=== PATIENT | male | born 1995 | race Caucasian/White ===

== ENCOUNTER 2017-04-08 14:43 | Emergency (ER) | payer OTHER ==
[~2017-04-08] VITALS: Ht 175.3 cm; Wt 68.2 kg
[2017-04-08 14:52] VITALS: TEMP 36.8; Ht 175.3 cm; Wt 68.2 kg
[2017-04-08] MEDS ORDERED: SODIUM CHLORIDE 0.9% 1000ML 1,000 ML IV STA (15:23)
[2017-04-08 15:36] LABS: BASO % 0.4 %; BASO ABS # 0.02 K/uL (0-0.2); COMPLETE YES; EOS % 1.4 %; HEMATOCRIT 40.2 % (42-52); IG% 0.6 %; LYMPH % 35.3 %; LYMPH ABS # 1.82 K/uL (1.2-3.4); MEAN CELL VOLUME 85.7 fL (80-100); MEAN CORPUSCULAR HEMOGLOBIN 30.5 pg (25-34); MEAN CORPUSCULAR HGB CONC 35.6 g/dl (32-36); MEAN PLATELET VOLUME 9.3 fL (7.4-10.4); MONO % 18.1 %; NEUT % 44.2 %; PLATELET COUNT 185 K/uL (130-400); RED BLOOD COUNT 4.69 M/uL (4.7-6.1); WHITE BLOOD COUNT 5.15 K/uL (4.8-10.8)
--- NOTE | 2017-04-08 15:37 | EMERGENCY ROOM VISIT NOTE ---
History Report prepared by Vincent: Robert Mata Under the Supervision of: Dr. Fredy Jeronimo D.O. First contact with patient: 15:12 Chief Complaint: SYNCOPE (NEAR SYNCOPE) Stated Complaint: WEEK LONG FEVER,ON ABX, HEADACHES, FAINTING History of Present Illness The patient is a 22 year old male who presents to the Emergency Room with complaints of a syncopal episode that occurred last night. Last week, he began to experience a headache with abnormal upper respiratory symptoms. The patient was diagnosed with a URI at [facility] and was given Azithromycin. He states that his respiratory symptoms have improved, but his headache has been constant. Last night while he was going to the bathroom, he began to have tunnel vision and thought he was going to pass out. He went outside and sat down with his friend and lost consciousness, hitting his face on the ground. His friend woke him up shortly after. The patient's headache worsens when he moves his head. He is also having some neck stiffness and a "delay" in his vision. He denies any fevers or vomiting. He states that he is nauseated. He does not take any medications. Source of History: patient Onset: last night Position: other (Global) Symptom Intensity: 1 episode Quality: other (Syncope) Timing: resolved Associated Symptoms: + headache, + neck pain, + nausea, No fevers, No vomiting Review of Systems See HPI for pertinent positives & negatives. A total of 10 systems reviewed and were otherwise negative. Past Medical & Surgical Medical Problems: (1) No Known Active Medical Problems Family History Patient reports no known family medical history. Social History Smoking Status: Former Smoker Smokeless Tobacco Use: No Alcohol Use: occasionally Drug Use: none Marital Status: single Housing Status: lives with roommate Occupation Status: student Current/Historical Medications Scheduled Protein (Whey Protein), 1 DOSE PO DIRECTED Allergies Coded Allergies: Amoxicillin (Verified Allergy, Intermediate, RASH, 04/08/17) Physical Exam Vital Signs Date Time Temp Pulse Resp B/P (MAP) Pulse Ox O2 Delivery O2 Flow Rate FiO2 04/08/17 17:01 72 16 124/78 98 04/08/17 16:46 04/08/17 16:45 72 16 124/78 98 Room Air 04/08/17 15:31 73 16 134/65 72 141/80 98 139/77 10/29/17 15:29 139/77 04/08/17 15:25 Room Air 04/08/17 15:20 76 04/08/17 14:52 36.8 94 18 137/84 98 Room Air Physical Exam GENERAL: Patient is awake, alert, and in no acute distress. Patient is resting comfortably and showing no signs of anxiety EYES: The conjunctivae are clear. The pupils are round and reactive. EARS, NOSE, MOUTH AND THROAT: The nose is without any evidence of any deformity. Mucous membranes are moist tongue is midline NECK: The neck is nontender and supple. RESPIRATORY: Normal respiratory effort is noted there is no evidence of wheezing rhonchi or rales CARDIOVASCULAR: Regular rate and rhythm noted there no murmurs rubs or gallops normal S1 normal S2 GASTROINTESTINAL: The abdomen is soft. Bowel sounds are present in all quadrants. Abdomen is nontender MUSCULOSKELETAL/EXTREMITIES: There is no evidence of gross deformity full range of motion is noted in the hips and shoulders SKIN: There is no obvious evidence of any rash. There are no petechiae, pallor or cyanosis noted. NEUROLOGIC: Patient is awake alert and oriented x3 strength is symmetric patellar reflexes are 2+ bilaterally Medical Decision & Procedures ER Provider Diagnostic Interpretation: Radiology results as stated below per my review and radiologist interpretation: HEAD WITHOUT CONTRAST (CT) CT DOSE: 614.27 mGy.cm HISTORY: Mental status change. Weakness. EVALUATE ALTERED MENTAL STATUS/WEAKNESS TECHNIQUE: Multiaxial CT images of the head were performed without the use of intravenous contrast. A dose lowering technique was utilized adhering to the principles of ALARA. Comparison: None. Findings: The paranasal sinuses and mastoid air cells are clear. The calvarium and skull base are intact. The ventricles and sulci are within normal limits. There is no mass, hematoma, midline shift, or acute infarct. Impression: No acute intracranial abnormality. The above report was generated using voice recognition software. It may contain grammatical, syntax or spelling errors. Electronically signed by: Oj Kessler M.D. 04/08/2017 4:04 PM Dictated Date/Time: 04/08/2017 4:03 PM CHEST ONE VIEW PORTABLE CLINICAL HISTORY: EVALUATE ALTERED MENTAL STATUS/WEAKNESS dyspnea COMPARISON STUDY: No previous studies for comparison. FINDINGS: The bones soft tissues and hemidiaphragms are normal. The cardiomediastinal silhouette is normal. The lungs are clear. The pulmonary vasculature is normal. IMPRESSION: Negative chest. The above report was generated using voice recognition software. It may contain grammatical, syntax or spelling errors. Electronically signed by: Oj Kessler M.D. 04/08/2017 4:06 PM Dictated Date/Time: 04/08/2017 4:06 PM Laboratory Results 04/08/17 15:18 Red Blood Count 4.69, Mean Corpuscular Volume 85.7, Mean Corpuscular Hemoglobin 30.5, Mean Corpuscular Hemoglobin Concent 35.6, Mean Platelet Volume 9.3, Neutrophils (%) (Auto) 44.2, Lymphocytes (%) (Auto) 35.3, Monocytes (%) (Auto) 18.1, Eosinophils (%) (Auto) 1.4, Basophils (%) (Auto) 0.4, Neutrophils # (Auto ) 2.28, Lymphocytes # (Auto) 1.82, Monocytes # (Auto) 0.93, Eosinophils # (Auto ) 0.07, Basophils # (Auto) 0.02 04/08/17 15:18 Test 04/08/17 15:18 White Blood Count 5.15 K/uL (4.8-10.8) Red Blood Count 4.69 M/uL (4.7-6.1) Hemoglobin 14.3 g/dL (14.0-18.0) Hematocrit 40.2 % (42-52) Mean Corpuscular Volume 85.7 fL (80-100) Mean Corpuscular Hemoglobin 30.5 pg (25-34) Mean Corpuscular Hemoglobin Concent 35.6 g/dl (32-36) Platelet Count 185 K/uL (130-400) Mean Platelet Volume 9.3 fL (7.4-10.4) Neutrophils (%) (Auto) 44.2 % Lymphocytes (%) (Auto) 35.3 % Monocytes (%) (Auto) 18.1 % Eosinophils (%) (Auto) 1.4 % Basophils (%) (Auto) 0.4 % Neutrophils # (Auto) 2.28 K/uL (1.4-6.5) Lymphocytes # (Auto) 1.82 K/uL (1.2-3.4) Monocytes # (Auto) 0.93 K/uL (0.11-0.59) Eosinophils # (Auto) 0.07 K/uL (0-0.5) Basophils # (Auto) 0.02 K/uL (0-0.2) RDW Standard Deviation 40.0 fL (36.4-46.3) RDW Coefficient of Variation 12.8 % (11.5-14.5) Immature Granulocyte % (Auto) 0.6 % Immature Granulocyte # (Auto) 0.03 K/uL (0.00-0.02) Urine Color YELLOW Urine Appearance CLEAR (CLEAR) Urine pH 7.0 (4.5-7.5) Urine Specific [place] 1.026 (1.000-1.030) Urine Protein NEG (NEG) Urine Glucose (UA) NEG (NEG) Urine Ketones NEG (NEG) Urine Occult Blood NEG (NEG) Urine Nitrite NEG (NEG) Urine Bilirubin NEG (NEG) Urine Urobilinogen NEG (NEG) Urine Leukocyte Esterase NEG (NEG) Anion Gap 6.0 mmol/L (3-11) Est Creatinine Clear Calc Drug Dose 108.4 ml/min Estimated GFR () 118.4 Estimated GFR (Non- 102.2 BUN/Creatinine Ratio 13.4 (10-20) Calcium Level 9.0 mg/dl (8.5-10.1) Magnesium Level 2.0 mg/dl (1.8-2.4) Total Bilirubin 0.5 mg/dl (0.2-1) Direct Bilirubin 0.1 mg/dl (0-0.2) Aspartate Amino Transf (AST/SGOT) 22 U/L (15-37) Alanine Aminotransferase (ALT/SGPT) 35 U/L (12-78) Alkaline Phosphatase 86 U/L (45-117) Total Creatine Kinase 150 U/L (39-308) Creatine Kinase MB 0.6 ng/ml (0.5-3.6) Creatine Kinase MB Ratio 0.4 (0-3.0) Troponin I < 0.015 ng/ml (0-0.045) Total Protein 8.0 gm/dl (6.4-8.2) Albumin 4.1 gm/dl (3.4-5.0) Thyroid Stimulating Hormone (TSH) 1.390 uIu/ml (0.300-4.500) Laboratory results per my review. Medications Administered Medications (Trade) Dose Ordered Sig/Carlyn Route Start Time Stop Time Status Last Admin Dose Admin Sodium Chloride 1,000 ml @ 999 mls/hr Q1H1M STAT IV 04/08/17 15:23 04/08/17 16:23 DC 04/08/17 15:38 999 MLS/HR ECG Indication: syncope Rate (beats per minute): 71 Rhythm: normal sinus Findings: no ectopy, other (No acute ST segment abnormalities) Comparison ECG Date: no prior available ED Course 1512: The patient was evaluated in room A12. A complete history and physical examination were performed. 1523: Ordered NSS 1,000 ml @ 999 mls/hr IV 1649: I spoke to the patient about performing a lumbar puncture procedure. He declined. 1700: Upon reevaluation, the patient is resting. I discussed the results and treatment plan with him. He verbalized agreement of the treatment plan. He was discharged home. Medical Decision Differential diagnosis: Etiologies such as vasovagal event, infection, hypoglycemia, electrolyte abnormalities, cardiac sources, intracerebral event, toxicologic, neurologic, as well as others were entertained. Nursing notes reviewed. The patient is a 22-year-old male who presented to the emergency department after having a syncopal episode. The patient states that he's been feeling ill lately with low-grade fever as well as headache. The patient was started on antibiotic is not patient and finish the course. At this time the patient does not have any focal neurologic deficit. He does not have meningismus. I discussed the patient's laboratory and radiographic studies with him. He was treated with IV fluids in the emergency department. The patient was offered to have a lumbar puncture. I explained to him that this would also rule out meningitis as well as intracranial hemorrhage with subarachnoid bleeding being a possibility even though the CAT scan was negative. I discussed the pros and cons ordering this test. At this time the patient does not wish to have a lumbar puncture. I encouraged him to rest and avoid any strenuous activity. He was encouraged to continue using Motrin and Tylenol for pain. He was also encouraged to follow-up with [facility] for further studies such as echocardiogram Holter monitor and possibly further neuroimaging if symptoms do not improve. Otherwise she was encouraged to return to the emergency Department immediately if symptoms change worsen or the need arises. Medication Reconcilliation Current Medication List: was personally reviewed by me Blood Pressure Screening Patient's blood pressure: Normal blood pressure Blood pressure disposition: Did not require urgent referral Impression Primary Impression: Syncope Additional Impression: Headache Scribe Attestation The scribe's documentation has been prepared under my direction and personally reviewed by me in its entirety. I confirm that the note above accurately reflects all work, treatment, procedures, and medical decision making performed by me. Departure Information Dispostion Home / Self-Care Referrals [facility] Forms HOME CARE DOCUMENTATION FORM, IMPORTANT VISIT INFORMATION, School Instructions Patient Instructions [facility], Syncope, Syncope Causes Additional Instructions Continue all medications as prescribed. Continue using Motrin and Tylenol for headache. Rest and avoid any strenuous activity. Follow-up with [facility] within the next few days for reevaluation. You may require further studies such as echocardiogram and Holter monitor to further evaluate the cause of your passing out spell. He may also require further imaging of your brain to evaluate because your headache if it does not improve. Problem Qualifiers Primary Impression: Syncope Syncope type: unspecified Qualified Codes: R55 - Syncope and collapse Additional Impression: Headache Headache type: unspecified Headache chronicity pattern: acute headache Intractability: not intractable Qualified Codes: R51 - Headache
[2017-04-08] MEDS ORDERED: PROT1POW7 PO (15:49)
[2017-04-08 15:55] LABS: ALT/SGPT 35 U/L (12-78); BLOOD UREA NITROGEN 14 mg/dl (7-18); BUN/CREATININE RATIO 13.4 (10-20); CARBON DIOXIDE 28 mmol/L (21-32); CHLORIDE 102 mmol/L (98-107); CREATININE 1.04 mg/dl (0.60-1.40); GLUCOSE 84 mg/dl (70-99); POTASSIUM 3.9 mmol/L (3.5-5.1); SODIUM 136 mmol/L (136-145)
[2017-04-08 16:01] LABS: URINE APPEARANCE CLEAR (CLEAR); URINE BILIRUBIN NEG (NEG); URINE COLOR YELLOW; URINE NITRITE NEG (NEG); URINE SPECIFIC GRAVITY 1.026 (1.000-1.030); UROBILINOGEN NEG (NEG)
[2017-04-08 16:03] LABS: MANUAL MICROSCOPIC REQUIRED? NO; REVIEW REQ? NO
--- NOTE | 2017-04-08 16:05 | DIAGNOSTIC IMAGING REPORT ---
HEAD WITHOUT CONTRAST (CT) CT DOSE: 614.27 mGy.cm HISTORY: Mental status change. Weakness. EVALUATE ALTERED MENTAL STATUS/WEAKNESS TECHNIQUE: Multiaxial CT images of the head were performed without the use of intravenous contrast. A dose lowering technique was utilized adhering to the principles of ALARA. Comparison: None. Findings: The paranasal sinuses and mastoid air cells are clear. The calvarium and skull base are intact. The ventricles and sulci are within normal limits. There is no mass, hematoma, midline shift, or acute infarct. Impression: No acute intracranial abnormality. The above report was generated using voice recognition software. It may contain grammatical, syntax or spelling errors. Electronically signed by: Oj Kessler M.D. 04/08/2017 4:04 PM Dictated Date/Time: 04/08/2017 4:03 PM
[2017-04-08 16:06] LABS: ALKALINE PHOSPHATASE 86 U/L (45-117); AST/SGOT 22 U/L (15-37); CKMB/CK RATIO 0.4 (0-3.0)
--- NOTE | 2017-04-08 16:07 | DIAGNOSTIC IMAGING REPORT ---
CHEST ONE VIEW PORTABLE CLINICAL HISTORY: EVALUATE ALTERED MENTAL STATUS/WEAKNESS dyspnea COMPARISON STUDY: No previous studies for comparison. FINDINGS: The bones soft tissues and hemidiaphragms are normal. The cardiomediastinal silhouette is normal. The lungs are clear. The pulmonary vasculature is normal. IMPRESSION: Negative chest. The above report was generated using voice recognition software. It may contain grammatical, syntax or spelling errors. Electronically signed by: Oj Kessler M.D. 04/08/2017 4:06 PM Dictated Date/Time: 04/08/2017 4:06 PM
[2017-04-08 17:01] VITALS: BP 124/78; PULSE 72; O2SAT 98
== END 2017-04-08 17:00 | disposition home or self-care (01) ==
LOC: C.EDB 14:45 → C.EDA 17:00
DX: R55 Syncope and collapse (principal); R51 Headache; F17.210 Nicotine dependence, cigarettes, uncomplicated